=== PATIENT | male | born 2000 | race American Indian/Alaskan Native ===

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

== ENCOUNTER 2019-10-19 20:58 | Emergency (ER) | payer MEDICAID ==
[2019-10-19 21:11] VITALS: BP 139/85; PULSE 81
--- NOTE | 2019-10-19 21:12 | EDM.PDOC ---
ED HPI GENERAL MEDICAL PROBLEM - General Chief Complaint: Skin Complaint Stated Complaint: RIGHT EYE LID SPIDER BIT OR SOMETHING. PER PT Time Seen by Provider: 10/19/19 21:15 Source of Information: Reports: Patient History Limitations: Reports: No Limitations - History of Present Illness INITIAL COMMENTS - FREE TEXT/NARRATIVE: ED with report of spider bite or infection above right eye, has had similar previously about a year ago and placed in hospital on antibiotics. Noticed redness yesterday, more swollen tonight - Related Data Allergies Allergy/AdvReac Type Severity Reaction Status Date / Time No Known Allergies Allergy Verified 10/19/19 21:04 Home Meds: Home Meds . [No Known Home Meds] 09/09/13 [History] Past Medical History - Past Health History Medical/Surgical History: Denies Medical/Surgical History HEENT History: Reports: None Cardiovascular History: Reports: None Respiratory History: Reports: None Gastrointestinal History: Reports: None Genitourinary History: Reports: None Musculoskeletal History: Reports: None Neurological History: Reports: None Psychiatric History: Reports: None Endocrine/Metabolic History: Reports: None Hematologic History: Reports: None Immunologic History: Reports: None Oncologic (Cancer) History: Reports: None Dermatologic History: Reports: None - Infectious Disease History Infectious Disease History: Reports: None - Past Surgical History Head Surgeries/Procedures: Reports: None Social & Family History - Family History Family Medical History: Noncontributory - Tobacco Use Smoking Status *Q: Never Smoker Second Hand Smoke Exposure: No - Caffeine Use Caffeine Use: Reports: Soda - Recreational Drug Use Recreational Drug Use: No ED ROS GENERAL - Review of Systems Review Of Systems: Comprehensive ROS is negative, except as noted in HPI. ED EXAM, SKIN/RASH Exam: See Below Exam Limited By: Language Barrier General Appearance: Alert, No Apparent Distress Eye Exam: Right Eye: Other (mild swelling right upper eyelid), Bilateral Eye: EOMI Ears: Normal External Exam, Hearing Grossly Normal Nose: Normal Inspection Throat/Mouth: Normal Inspection Head: Facial Swelling (mild swelling erythema to right upper eyebrow) Neck: Normal Inspection Respiratory/Chest: No Respiratory Distress, Lungs Clear, Normal Breath Sounds Cardiovascular: Regular Rate, Rhythm GI/Abdominal: Normal Bowel Sounds, Soft Back Exam: Normal Inspection, Full Range of Motion Extremities: Normal Inspection, Normal Range of Motion Psychiatric: Normal Affect Skin: Warm, Dry, Intact, Normal Color Location, Skin: Face Associated features: Tenderness, Swelling ED SKIN PROCEDURES - I&D Skin Prep: Saline Area Incised With: Other Drainage: Purulent, Small Amount Probed to Break Up Loculations: No Packed With: None Course - Vital Signs Last Recorded V/S: Last Vital Signs Temp 98 F 10/19/19 21:06 Pulse 81 10/19/19 21:06 Resp 16 10/19/19 21:06 BP 139/85 10/19/19 21:06 Pulse Ox 99 10/19/19 21:06 - Orders/Labs/Meds Orders: Active Orders 24 hr Category Date Time Status CULTURE BLOOD [BC] Stat Lab 10/19/19 21:32 Received CULTURE WOUND [RM] Stat Lab 10/19/19 21:16 Received Labs: Laboratory Tests 10/19/19 10/19/19 10/19/19 Range/Units 21:32 21:32 21:32 WBC 11.7 H (5.0-10.0) 10^3/uL RBC 5.11 (4.6-6.2) 10^6/uL Hgb 15.6 (14.0-18.0) g/dL Hct 44.3 (40.0-54.0) % MCV 86.7 (80-100) fL MCH 30.5 (27.0-34.0) pg MCHC 35.2 H (33.0-35.0) g/dL Plt Count 240 (150-450) 10^3/uL Neut % (Auto) 69.0 (42.2-75.2) % Lymph % (Auto) 17.3 L (20.5-50.1) % [place] % (Auto) 9.6 H (2-8) % Eos % (Auto) 3.8 H (1.0-3.0) % Baso % (Auto) 0.3 (0.0-1.0) % Sodium 140 (136-145) mmol/L Potassium 3.6 (3.5-5.1) mmol/L Chloride 103 (98-107) mmol/L Carbon Dioxide 26 (21-32) mmol/L Anion Gap 14.6 H (7-13) mEq/L BUN 11 (7-18) mg/dL Creatinine 1.22 (0.70-1.30) mg/dL Est Cr Clr Drug Dosing 93.44 mL/min Estimated GFR (MDRD) > 60 BUN/Creatinine Ratio 9.0 (No establ ref range) Glucose 87 (74-99) mg/dL Lactic Acid 1.0 (0.4-2.0) mmol/L Calcium 9.4 (8.5-10.1) mg/dL Total Bilirubin 0.5 (0.2-1.0) mg/dL AST 22 (15-37) U/L ALT 27 (16-63) U/L Alkaline Phosphatase 76 (46-116) U/L Total Protein 8.5 H (6.4-8.2) g/dL Albumin 4.7 (3.4-5.0) g/dL Globulin 3.8 Albumin/Globulin Ratio 1.2 Meds: Medications Discontinued Medications Generic Name Dose Route Start Last Admin Trade Name Freq PRN Reason Stop Dose Admin Vancomycin HCl 1,375 mg/ 500 mls @ 333.333 mls/hr 10/19/19 21:19 10/19/19 21:36 Sodium Chloride IV 10/19/19 22:48 333.333 mls/hr ONETIME ONE Administration Departure - Departure Time of Disposition: 23:18 Disposition: Home, Self-Care 01 Condition: Good Clinical Impression: Abscess Abscess of skin Qualifiers: Site of cutaneous abscess: face Qualified Code(s): L02.01 - Cutaneous abscess of face - Discharge Information *PRESCRIPTION DRUG MONITORING PROGRAM REVIEWED*: Not Applicable *COPY OF PRESCRIPTION DRUG MONITORING REPORT IN PATIENT ZEV: Not Applicable Instructions: Skin Abscess, [id number] Forms: ED Department Discharge Additional Instructions: Doxycycline 100mg one twice daily for 10 days increase fluids warm pack to right eye brow 3 times daily clinic recheck on Tuesday, urgent follow up if increased redness or swelling of area tylenol or ibuprofen for discomfort Sepsis Event Note (ED) - Evaluation Sepsis Screening Result: No Definite Risk - Focused Exam Vital Signs: Vital Signs Temp Pulse Resp BP Pulse Ox 10/19/19 21:06 98 F 81 16 139/85 99 - My Orders Last 24 Hours: My Active Orders 10/19/19 21:16 CULTURE WOUND [RM] Stat 10/19/19 21:32 CULTURE BLOOD [BC] Stat - Assessment/Plan Last 24 Hours: My Active Orders 10/19/19 21:16 CULTURE WOUND [RM] Stat 10/19/19 21:32 CULTURE BLOOD [BC] Stat
[2019-10-19] MEDS ORDERED: VANCOMYCIN IV ONE (21:19)
[2019-10-19] MEDS ORDERED: SODIUM CHLORIDE 0.9% IV ONE (21:19)
[2019-10-19 22:04] LABS: ANION GAP 14.6 mEq/L (7-13); CHLORIDE,CL 103 mmol/L (98-107); SODIUM,NA 140 mmol/L (136-145)
== END 2019-10-19 23:11 | disposition home or self-care (01) ==
LOC: DL.ED 20:58
DX: H00.031 Abscess of right upper eyelid (principal)
CPT/HCPCS: 10060; 36415; 80053; 83605; 85025; 87040; 87070; 87077; 87186; 96365; 99283; J3370; J7040; 99282

== ENCOUNTER 2020-08-20 06:19 | Emergency (ER) | payer MEDICAID, OTHER ==
[2020-08-20 06:27] VITALS: BP 159/91; PULSE 79
--- NOTE | 2020-08-20 06:49 | EDM.PDOC ---
ED HPI GENERAL MEDICAL PROBLEM - General Chief Complaint: Skin Complaint Stated Complaint: SWALLON TOP LIP PIMPLE Time Seen by Provider: 08/20/20 06:40 Source of Information: Reports: Patient, RN, RN Notes Reviewed History Limitations: Reports: No Limitations - History of Present Illness INITIAL COMMENTS - FREE TEXT/NARRATIVE: Patient is a 19-year-old male who presents to ER with complaint of abscess to the middle of the upper lip just under the nose. Patient states it began a few days ago and he has been picking at it but feels there is still something to come out, states it is very tender and swollen. Patient states he has had this problem in the past and has needed antibiotics. Denies any fever or chills. Onset: Gradual Upper Lip Pain Score (Numeric/FACES): 5 - Related Data Allergies Allergy/AdvReac Type Severity Reaction Status Date / Time No Known Allergies Allergy Verified 08/20/20 06:27 Home Meds: Home Meds . [No Known Home Meds] 09/09/13 [History] Past Medical History - Past Health History Medical/Surgical History: Denies Medical/Surgical History HEENT History: Reports: None Cardiovascular History: Reports: None Respiratory History: Reports: None Gastrointestinal History: Reports: None Genitourinary History: Reports: None Musculoskeletal History: Reports: Fracture Neurological History: Reports: None Psychiatric History: Reports: None Endocrine/Metabolic History: Reports: None Hematologic History: Reports: None Immunologic History: Reports: None Oncologic (Cancer) History: Reports: None Dermatologic History: Reports: None - Infectious Disease History Infectious Disease History: Reports: None - Past Surgical History Head Surgeries/Procedures: Reports: None Musculoskeletal Surgical History: Reports: Other (See Below) Other Musculoskeletal Surgeries/Procedures:: left hand surgery Social & Family History - Family History Family Medical History: No Pertinent Family History - Tobacco Use Tobacco Use Status *Q: Current Every Day Tobacco User Years of Tobacco use: 3 Packs/Tins Daily: 0.5 Second Hand Smoke Exposure: Yes - Caffeine Use Caffeine Use: Reports: Soda - Recreational Drug Use Recreational Drug Use: No ED ROS GENERAL - Review of Systems Review Of Systems: Comprehensive ROS is negative, except as noted in HPI. ED EXAM, SKIN/RASH Exam: See Below Exam Limited By: No Limitations General Appearance: Alert, WD/WN, No Apparent Distress Eye Exam: Bilateral Eye: EOMI, Normal Inspection Ears: Normal External Exam, Hearing Grossly Normal Nose: Normal Inspection Throat/Mouth: Normal Inspection, Normal Voice, No Airway Compromise Head: Atraumatic, Normocephalic Neck: Normal Inspection, Supple, Non-Tender, Full Range of Motion Respiratory/Chest: No Respiratory Distress, Lungs Clear, Normal Breath Sounds, No Accessory Muscle Use, Chest Non-Tender Cardiovascular: Normal Peripheral Pulses, Regular Rate, Rhythm, No Edema, No Gallop, No JVD, No Murmur, No Rub GI/Abdominal: Normal Bowel Sounds, Soft, Non-Tender (Male) Exam: Deferred Rectal (Males) Exam: Deferred Back Exam: Normal Inspection, Full Range of Motion, NT Extremities: Normal Inspection, Normal Range of Motion, Non-Tender, No Pedal Edema, Normal Capillary Refill Neurological: Alert, Oriented, Normal Cognition, Normal Gait Psychiatric: Normal Affect, Normal Mood Skin: Warm, Dry, Normal Color, No Rash, Other (0.5 cm x 0.5 cm abscess to the center of the upper lip) Location, Skin: Face Characteristics: Vesicular Associated features: Warmth, Tenderness Lymphatic: No Adenopathy ED SKIN PROCEDURES - I&D Site: Center of the upper lip Skin Prep: Isopropyl Alcohol (Alcohol) Area Incised With: Needle Drainage: Purulent, Bloody, Moderate Amount Probed to Break Up Loculations: Yes Packed With: None Sterile Dressing: None Complications: No Course - Vital Signs Last Recorded V/S: Last Vital Signs Temp 98.6 F 08/20/20 06:22 Pulse 79 08/20/20 06:22 Resp 18 08/20/20 06:22 BP 159/91 H 08/20/20 06:22 Pulse Ox 98 08/20/20 06:22 Departure - Departure Time of Disposition: 06:48 Disposition: Home, Self-Care 01 Condition: Good Clinical Impression: Abscess - Discharge Information *PRESCRIPTION DRUG MONITORING PROGRAM REVIEWED*: No *COPY OF PRESCRIPTION DRUG MONITORING REPORT IN PATIENT ZEV: No Instructions: Skin Abscess, [id number] Forms: ED Department Discharge Additional Instructions: RX: Bactrim DS orally twice daily for 10 days Follow up with your primary care facility if no improvement Return to ER with any worsening of problems May use Tylenol and/or Ibuprofen as directed for pain Sepsis Event Note (ED) - Evaluation Sepsis Screening Result: No Definite Risk - Focused Exam Vital Signs: Vital Signs Temp Pulse Resp BP Pulse Ox 08/20/20 06:22 98.6 F 79 18 159/91 H 98
== END 2020-08-20 07:00 | disposition home or self-care (01) ==
LOC: DL.ED 06:19
DX: K13.0 Diseases of lips (principal); Z72.0 Tobacco use
CPT/HCPCS: 10060; 87070; 87077; 87186; 99283; 99283-25

== ENCOUNTER 2022-04-09 21:51 | Emergency (ER) | payer MEDICAID ==
[2022-04-09 22:04] VITALS: BP 157/88; PULSE 72
[2022-04-09] MEDS ORDERED: Penicillin V Potassium 250 MG Tab PO STA (22:05)
[2022-04-09] MEDS ORDERED: Ibuprofen 800 MG Tab PO ONE (22:05)
== END 2022-04-09 22:17 | disposition home or self-care (01) ==
LOC: DL.ED 21:51
DX: K04.7 Periapical abscess without sinus (principal)
CPT/HCPCS: 99282; A9270-GY

== ENCOUNTER 2022-08-08 15:06 | Emergency (ER) | payer MEDICAID ==
[2022-08-08] MEDS ORDERED: Take Home: Lidocaine 2% Viscous Solution 15 ML UD, 2 Cup Pack PO ONE (15:16)
[2022-08-08] MEDS ORDERED: Lidocaine 2% Viscous Solution 15 ML UD PO ONE (15:16)
[2022-08-08] MEDS ORDERED: Take Home: Amoxicillin 500 MG, 6 Cap Pack PO ONE (15:17)
[2022-08-08] MEDS ORDERED: Acetaminophen/Codeine 300-30 MG Tab PO ONE (15:18)
[2022-08-08 15:20] VITALS: PULSE 78
[2022-08-08 15:40] VITALS: BP 144/94
== END 2022-08-08 15:35 | disposition home or self-care (01) ==
LOC: DL.ED 15:06
DX: K02.9 Dental caries, unspecified (principal)
CPT/HCPCS: 99282; A9270